=== PATIENT | male | born 1995 | race Caucasian/White ===

== ENCOUNTER 2016-12-28 11:09 | Emergency (ER) | payer SELFPAY ==
--- NOTE | 2016-12-28 11:49 | UC ---
Upper Extremity HPI - HPI Summary HPI Summary: Swollen area under left arm for about 7 days seemed to be getting worse (more swollen) daily, no pain, no fever, no erythema - History of Current Complaint Chief Complaint: UCGeneralIllness Stated Complaint: LEFT UNDERARM COMPLAINT/HEADACHE Time Seen by Provider: 12/28/16 11:39 Hx Obtained From: Patient ?: No Onset/Duration: Gradual Onset, Lasting Days - 7 Severity Initially: Mild Severity Currently: Moderate Location Of Pain: Is Discrete @ - left axilla Alleviating Factor(s): Nothing Associated Signs And Symptoms: Positive: Swelling Related History: Dominant Hand Right - Allergies/Home Medications Allergies/Adverse Reactions: Allergies Allergy/AdvReac Type Severity Reaction Status Date / Time No Known Allergies Allergy Verified 12/28/16 11:37 Home Medications: Home Medications NK [No Home Medications Reported] 12/28/16 [History Confirmed 12/28/16] PMH/Surg Hx/FS Hx/Imm Hx Previously Healthy: Yes - Surgical History Surgical History: Yes Surgery Procedure, Year, and Place: deviated septum - Family History Known Family History: Positive: None - Social History Occupation: Employed Full-time Lives: With Family Alcohol Use: None Substance Use Type: None Smoking Status (MU): Never Smoked Tobacco Review of Systems Constitutional: Negative Skin: Negative Eyes: Negative ENT: Negative Respiratory: Negative Cardiovascular: Negative Gastrointestinal: Negative Genitourinary: Negative Motor: Negative Neurovascular: Negative Musculoskeletal: Negative, Other: - swoleen tissue left axilla, Neurological: Negative Psychological: Negative Is Patient Immunocompromised?: No All Other Systems Reviewed And Are Negative: Yes Physical Exam Triage Information Reviewed: Yes Appearance: Well-Appearing, No Pain Distress, Well-Nourished, Other: Vital Signs: Initial Vital Signs Temp 99.2 F 12/28/16 11:28 Pulse 85 12/28/16 11:28 Resp 14 12/28/16 11:28 BP 127/65 12/28/16 11:28 Pulse Ox 99 12/28/16 11:28 Vital Signs Reviewed: Yes Eye Exam: Normal Eyes: Positive: Conjunctiva Clear ENT Exam: Normal ENT: Positive: Normal ENT inspection, Hearing grossly normal, Pharynx normal, TMs normal. Negative: Nasal congestion, Nasal drainage, Tonsillar swelling, Tonsillar exudate, Trismus, Muffled/hoarse voice Dental Exam: Normal Neck exam: Normal Neck: Positive: Supple, Nontender, No Lymphadenopathy Respiratory Exam: Normal Respiratory: Positive: Chest non-tender, Lungs clear, Normal breath sounds, No respiratory distress, No accessory muscle use Cardiovascular Exam: Normal Cardiovascular: Positive: RRR, No Murmur, Pulses Normal, Brisk Capillary Refill Musculoskeletal Exam: Normal Musculoskeletal: Positive: Strength Intact, ROM Intact, No Edema Neurological Exam: Normal Neurological: Positive: Alert, Muscle Tone Normal Psychological Exam: Normal Skin Exam: Normal Skin: Positive: significant lesion(s) - 2 x 5 cm non tender fixed, no erythema area left axilla Diagnostics - Laboratory Diagnostic Studies Completed/Ordered: Ultra sound -complex cyst, not related to muscle, requires FNB for evaluation Upper Extremity Course/Dx - Course Course Of Treatment: Follow up appointment made for patient with surgery at 8: 30 12/31/[address] Pickett. Patient is agreeable to follow up and understands the reasons for hightened concern - Differential Dx/Diagnosis Provider Diagnoses: Lymphadenopathy left axilla Discharge - Discharge Plan Condition: Stable Disposition: HOME Patient Education Materials: Lymphadenopathy (ED), Superficial Mass Needle Biopsy (ED) Forms: *Work Release Referrals: Palomo Pickett MD [Medical Doctor] - 12/31/16 8:30 am
[2016-12-28 13:17] VITALS: BP 106/58
--- NOTE | 2016-12-28 13:38 | RAD ---
Indication: Hard palpable lump at LEFT axilla. Lump felt by patient for 2 weeks. Afebrile. Comparison: No prior exams available on the [facility] for comparison. Technique: Ultrasound of the LEFT axilla corresponding with the region of palpable lump. Report: Irregular morphology moderately well circumscribed 4.2 x 2.9 x 2.7 cm heterogeneously hypoechoic lesion with a deep cystic portion and solid superficial portion with intrinsic vascularity. No echogenic shadowing foci to suggest intralesional gas or calcifications. The lesion is within the deep subcutaneous tissue plane approximating the thoracic wall and does not appear to involve skeletal muscle. Normal morphology 0.8 cm short axis LEFT axillary level lymph node visualized with normal hypoechoic cortex and hyperechoic fatty hilar architecture. No LEFT glenohumeral joint effusion evident. IMPRESSION: Nonspecific complex lesion at the LEFT axilla corresponding with the palpable lump. Given absence of signs and symptoms suspicious for an abscess a neoplastic lesion should be considered. The cystic portion may represent necrosis. Clinical or ultrasound guided tissue sampling for histopathologic assessment should be considered.
== END 2016-12-28 14:21 | disposition home or self-care (01) ==
LOC: UCCORT 11:09
DX: R59.1 Generalized enlarged lymph nodes (principal)
CPT/HCPCS: 99202; G0463

== ENCOUNTER 2018-01-09 15:32 | Emergency (ER) | payer OTHER ==
[2018-01-09 16:29] VITALS: BP 143/79
--- NOTE | 2018-01-09 17:19 | RAD ---
INDICATION: Right ankle pain after basketball injury COMPARISON: None. TECHNIQUE: 3 views of the right ankle were obtained. FINDINGS: There is asymmetric mild to moderate soft tissue swelling overlying the fibular malleolus. The bones are normal alignment. Joint spaces appear maintained. No fracture is seen. IMPRESSION: SOFT TISSUE SWELLING OVERLYING THE FIBULAR MALLEOLUS WITHOUT UNDERLYING RADIOGRAPHICALLY APPARENT FRACTURE OR DISLOCATION. If the patient's symptoms persist, follow-up imaging is recommended.
--- NOTE | 2018-01-09 17:23 | UC ---
Lower Extremity/Ankle HPI - HPI Summary HPI Summary: Pt c/o right ankle pain and swelling after falling and "twisting" right ankle while playing basketball yesterday. Pt c/o right ankle lateral ankle swelling . Pt is able to bear weight. - History of Current Complaint Chief Complaint: UCLowerExtremity Stated Complaint: RIGHT ANKLE INJURY - W/C Time Seen by Provider: 01/09/18 16:53 Hx Obtained From: Patient Onset/Duration: Sudden Onset, Still Present Severity Initially: Moderate Severity Currently: Mild Pain Intensity: 5 Aggravating Factor(s): Standing, Ambulation Alleviating Factor(s): Rest Able to Bear Weight: Yes - Risk Factors Gout Risk Factors: Male DVT Risk Factors: Negative Septic Arthritis Risk Factor: Negative - Allergies/Home Medications Allergies/Adverse Reactions: Allergies Allergy/AdvReac Type Severity Reaction Status Date / Time No Known Allergies Allergy Verified 01/09/18 16:26 PMH/Surg Hx/FS Hx/Imm Hx Previously Healthy: Yes - Surgical History Surgical History: Yes [facility] - Family History Known Family History: Positive: Cardiac Disease - Social History Occupation: Student - [employer] Alcohol Use: None Substance Use Type: None Smoking Status (MU): Never Smoked Tobacco Have You Smoked in the Last Year: No Review of Systems Constitutional: Negative Skin: Negative Eyes: Negative ENT: Negative Respiratory: Negative Cardiovascular: Negative Gastrointestinal: Negative Genitourinary: Negative Motor: Negative Neurovascular: Negative Musculoskeletal: Arthralgia, Edema - right lateral malleolus, Myalgia - right ankle Neurological: Negative Psychological: Negative Is Patient Immunocompromised?: No All Other Systems Reviewed And Are Negative: Yes Physical Exam Triage Information Reviewed: Yes Appearance: Well-Appearing Vital Signs: Initial Vital Signs Temp 98.6 F 01/09/18 16:25 Pulse 65 01/09/18 16:25 Resp 16 01/09/18 16:25 BP 143/79 01/09/18 16:25 Pulse Ox 98 01/09/18 16:25 Vital Signs Reviewed: Yes Eye Exam: Normal ENT Exam: Normal ENT: Positive: Hearing grossly normal Dental Exam: Normal Neck exam: Normal Respiratory: Positive: No respiratory distress Musculoskeletal: Positive: Edema @ - right lateral malleolus Neurological Exam: Normal Psychological Exam: Normal Skin Exam: Normal Diagnostics - Radiology No standard instances Radiology Interpretation Completed By: Radiologist - IMPRESSION: SOFT TISSUE SWELLING OVERLYING THE FIBULAR MALLEOLUS WITHOUT UNDERLYING RADIOGRAPHICALLY APPARENT FRACTURE OR DISLOCATION. Lower Extremity Course/Dx - Differential Dx/Diagnosis Differential Diagnosis/HQI/PQRI: Fracture (Closed) - IMPRESSION: SOFT TISSUE SWELLING OVERLYING THE FIBULAR MALLEOLUS WITHOUT UNDERLYING RADIOGRAPHICALLY APPARENT FRACTURE OR DISLOCATION. If the patient's symptoms persist, follow-up imaging is recommended., Sprain, Strain Provider Diagnoses: right ankle sprain Discharge - Sign-Out/Discharge Documenting (check all that apply): Patient Departure All imaging exams completed and their final reports reviewed: Yes - Discharge Plan Condition: Stable Disposition: HOME Patient Education Materials: Ankle Sprain (ED), R.I.C.E. Treatment (ED) Referrals: Tong Rodriguez MD [Medical Doctor] - If Needed Corina Bond MD [Medical Doctor] - If Needed No Primary Care Phys,NOPCP [Primary Care Provider] - - Billing Disposition and Condition Condition: STABLE Disposition: Home
== END 2018-01-09 17:31 | disposition home or self-care (01) ==
LOC: UCCORT 15:32
DX: S93.401A Sprain of unspecified ligament of right ankle, initial encounter (principal); W18.30XA Fall on same level, unspecified, initial encounter; Y92.9 Unspecified place or not applicable
CPT/HCPCS: 99211; G0463